=== PATIENT | female | born 1980 | race Caucasian/White ===

== ENCOUNTER 2025-02-12 00:19 | Inpatient (IN) | payer OTHER ==
--- NOTE | 2025-02-12 01:12 | ED ---
Abdominal Pain HPI - General Source: patient, RN notes reviewed Mode of arrival: ambulatory Limitations: no limitations - History of Present Illness MD Complaint: abdominal pain <Fatoumata Kiran - Last Filed: 02/12/25 20:39> <Marjorie Nash - Last Filed: 02/15/25 15:57> - General Chief Complaint: Abdominal Pain Stated Complaint: abd pain - History of Present Illness Initial Comments: Patient is a 44-year-old female with no known past medical history presenting for sudden onset abdominal pain. She states that around 7 PM her pain started mostly in her rib area but also has some right lower quadrant pain. She also reports increased flatus. She did have 1 episode of nonbloody nonbilious emesis earlier. She describes the pain as 89/10, twisting/cramping sensation, without radiation. History of tubal ligation 14 years ago. She denies aggravating factors or alleviating factors. She has tried NSAIDs, heating packs, positional changes without improvement. She denies fever/chills, chest pain, dyspnea, dysuria/hematuria, melena/hematochezia. (Fatoumata Kiran) - Related Data Previous Rx's Medication Instructions Recorded Amoxic-Pot Clav 500-125 mg 1 tab PO Q12HR #10 tab 02/14/25 [Augmentin 500-125 mg] Docusate [Colace] 100 mg PO BID #30 capsule 02/14/25 HYDROcodone/APAP 5-325MG [[place] 1 tab PO Q6HR PRN 3 Days #12 tab 02/14/25 5-325] Allergies Allergy/AdvReac Type Severity Reaction Status Date / Time No Known Allergies Allergy Verified 02/12/25 09:26 Review of Systems ROS Other: All systems not noted in ROS Statement are negative. Constitutional: Denies: fever, chills Respiratory: Denies: dyspnea Gastrointestinal: Reports: abdominal pain, nausea, vomiting (1 episode of nonbloody nonbilious emesis). Denies: diarrhea, constipation, melena, hematochezia Genitourinary: Denies: urgency, dysuria, frequency, hematuria <Fatoumata Kiran - Last Filed: 02/12/25 20:39> ROS Other: All systems not noted in ROS Statement are negative. <Marjorie Nash - Last Filed: 02/15/25 15:57> ROS Statement: Those systems with pertinent positive or pertinent negative responses have been documented in the HPI. Past Medical History Past Medical History: No Reported History History of Any Multi-Drug Resistant Organisms: None Reported Past Surgical History: No Surgical Hx Reported Past Psychological History: No Psychological Hx Reported Smoking Status: Never smoker Past Alcohol Use History: None Reported Past Drug Use History: None Reported <Fatoumata Kiran - Last Filed: 02/12/25 20:39> General Exam Limitations: no limitations General appearance: alert, in no apparent distress Head exam: Present: atraumatic Eye exam: Present: normal appearance Respiratory exam: Present: normal lung sounds bilaterally. Absent: respiratory distress, wheezes, rales, rhonchi, stridor, chest wall tenderness, accessory muscle use Cardiovascular Exam: Present: regular rate, normal rhythm, normal heart sounds. Absent: systolic murmur, diastolic murmur GI/Abdominal exam: Present: soft, tenderness (Mild RLQ), normal bowel sounds. Absent: distended, guarding, rebound, rigid Neurological exam: Present: alert, oriented X3 Psychiatric exam: Present: normal affect, normal mood <Fatoumata Kiran - Last Filed: 02/12/25 20:39> Course Vital Signs 02/12/25 02/12/25 02/12/25 00:32 04:59 06:28 Temperature 98 F 98.2 F 98.7 F Pulse Rate 70 71 70 Respiratory 18 18 18 Rate Blood Pressure 171/83 133/80 150/88 O2 Sat by Pulse 100 97 97 Oximetry 02/12/25 02/12/25 07:46 12:33 Temperature Pulse Rate 66 79 Respiratory 18 16 Rate Blood Pressure 157/88 157/99 O2 Sat by Pulse 98 100 Oximetry Medical Decision Making - Lab Data Result diagrams: 02/12/25 02:48 02/12/25 02:48 <Fatoumata Kiran - Last Filed: 02/12/25 20:39> - Lab Data Result diagrams: 02/14/25 08:54 02/14/25 08:40 <Marjorie Nash - Last Filed: 02/15/25 15:57> - Medical Decision Making Was pt. sent in by a medical professional or institution (, PA, WEBSPHERE COMMERCE DEVELOPER, urgent care, hospital, or senior living...) When possible be specific @ -No Did you speak to anyone other than the patient for history (EMS, parent, family, police, friend...)? What history was obtained from this source @ -No Did you review nursing and triage notes (agree or disagree)? Why? @ -I reviewed and agree with nursing and triage notes Were old charts reviewed (outside hosp., previous admission, EMS record, old EKG, old radiological studies, urgent care reports/EKG's, senior living records)? Report findings @ -No old charts were reviewed Differential Diagnosis? @ -Differential Abdominal Pain Women: Appendicitis, Cholecystitis, diverticulosis, ischemic bowel, pancreatitis, hepatitis, UTI, gastroenteritis, AAA, incarcerated hernia, bowel obstruction, constipation, inflammatory bowel, hepatitis, peptic ulcer disease, splenic infarction, perforated viscus, vulvitis, ovarian torsion, PID, kidney stone, placenta abruption, this is not meant to be an all-inclusive list EKG interpreted by me (3pts min.). @ -As above X-rays interpreted by me (1pt min.). @ -None done CT interpreted by me (1pt min.). @ -No obstruction or masses identified U/S interpreted by me (1pt. min.). @ -None done What testing was considered but not performed or refused? (CT, X-rays, U/S, labs)? Why? @ -None What meds were considered but not given or refused? Why? @ -None Did you discuss the management of the patient with other professionals (professionals i.e. , PA, WEBSPHERE COMMERCE DEVELOPER, lab, RT, psych nurse, social service manager, air traffic systems technician, teacher, founder chairman and chief creative officer, block and case maker)? Give summary @ -No Was smoking cessation discussed for >3mins.? @ -No Was critical care preformed (if so, how long)? @ -No Were there social determinants of health that impacted care today? How? (Homelessness, low income, unemployed, alcoholism, drug addiction, transportation, low edu. Level, literacy, decrease access to med. care, senior living, rehab)? @ -No Was there de-escalation of care discussed even if they declined (Discuss DNR or withdrawal of care, Hospice)? DNR status @ -No What co-morbidities impacted this encounter? (DM, HTN, Smoking, COPD, CAD, Cancer, CVA, ARF, Chemo, Hep., AIDS, mental health diagnosis, sleep apnea, morbid obesity)? @ -None Was patient admitted / discharged? Hospital course, mention meds given and route, prescriptions, significant lab abnormalities, going to OR and other perti nelisa info. @ -Patient is a 44-year-old female with no known past medical history presenting for 6 hours of sudden onset abdominal pain. She reports that as diffuse, 89/10, nonradiating, unchanging. A CBC, CMP, lipase, beta-hCG, urinalysis were obtained. Patient was given Pepcid, Carafate, Maalox, viscous lidocaine, Zofran, and morphine. CT scan revealed appendicitis without perforation or abs cess, bilateral adnexal varices, mild left hydronephrosis without hydroureter. Surgery was consulted and they accepted the patient. Undiagnosed new problem with uncertain prognosis? @ -No Drug Therapy requiring intensive monitoring for toxicity (Heparin, Nitro, Insulin, Cardizem)? @ -No Were any procedures done? @ -No Diagnosis/symptom? @ -Appendicitis Acute, or Chronic, or Acute on Chronic? @ -Acute Uncomplicated (without systemic symptoms) or Complicated (systemic symptoms)? @ -Uncomplicated Side effects of treatment? @ -No Exacerbation, Progression, or Severe Exacerbation? @ -No Poses a threat to life or bodily function? How? (Chest pain, [place], [place], pneumonia, PE, COPD, DKA, ARF, appy, cholecystitis, CVA, Diverticulitis, Homicidal, Suicidal, threat to staff... and all critical care pts) @ -No (Fatoumata Kiran) I personally saw the patient and performed the critical portion of the service. I discussed the patient care with the physician. I directed management, care planning and final disposition of the patient. This includes, but not limited to, review of all lab work, radiological studies, EKG's, consultations, vital signs, and nursing notes. CT interpreted by me ( 1pt min.) @Personally reviewed CT abdomen pelvis, I do not see any evidence of per foration or bowel obstruction, radiologist read is significant for appendicitis I agree with radiologist interpretation Critical care time of [0] minutes excluding separately billable procedures was spent in conjunction with critical care activities provided by the Resident and Attending simultaneously. I was present during [no procedures] for all critical portions of the procedure and as immediately available to furnish service during the entire procedure. (Marjorie Nash) - Lab Data Lab Results 02/12/25 02/12/25 02/12/25 Range/Units 02:48 02:48 02:48 WBC 14.37 H (4.50-10.00) 10*3/uL RBC 4.29 (4.10-5.20) 10*6/uL Hgb 13.7 (12.0-15.0) g/dL Hct 38.9 (37.2-46.3) % MCV 90.7 (80.0-97.0) fL MCH 31.9 (27.0-32.0) pg MCHC 35.2 (32.0-37.0) g/dL Plt Count 315 (140-440) 10*3/uL MPV 9.7 (9.5-12.2) fL Immature Gran % (Auto) 0.3 % Neutrophils % 87.0 % Lymphocytes % 8.6 % Monocytes % 3.7 % Eosinophils % 0.1 % Basophils % 0.3 % Immature Gran # 0.05 H (0.00-0.04) 10*3/uL Neutrophils # 12.50 H (1.80-7.70) 10*3/uL Lymphocytes # 1.24 (0.90-5.00) 10*3/uL Monocytes # 0.53 (0.20-1.00) 10*3/uL Eosinophils # 0.01 L (0.04-0.35) 10*3/uL Basophils # 0.04 (0.00-0.10) 10*3/uL Sodium 135 L (137-145) mmol/L Potassium 4.2 (3.5-5.1) mmol/L Chloride 101 (98-107) mmol/L Carbon Dioxide 23 (22-30) mmol/L Anion Gap 11 mmol/L BUN 13 (7-17) mg/dL Creatinine 0.61 (0.52-1.04) mg/dL Est GFR (CKD-EPI)AfAm >90 (>60 ml/min/1.73 sqM) Est GFR (CKD-EPI)NonAf >90 (>60 ml/min/1.73 sqM) Glucose 155 H (74-99) mg/dL Calcium 10.0 (8.4-10.2) mg/dL Total Bilirubin 0.6 (0.2-1.3) mg/dL AST 27 (14-36) U/L ALT 30 (4-34) U/L Alkaline Phosphatase 56 (38-126) U/L Total Protein 7.4 (6.3-8.2) g/dL Albumin 4.4 (3.5-5.0) g/dL Lipase 89 (23-300) U/L HCG, Qual Not Detected Urine Color Yellow Urine Appearance Clear (Clear) Urine pH 5.0 (5.0-8.0) Ur Specific [place] 1.027 (1.001-1.035) Urine Protein Negative (Negative) Urine Glucose (UA) 1+ H (Negative) Urine Ketones 1+ H (Negative) Urine Blood Trace H (Negative) Urine Nitrite Negative (Negative) Urine Bilirubin Negative (Negative) Urine Urobilinogen <2.0 (<2.0) mg/dL Ur Leukocyte Esterase Negative (Negative) Urine RBC 1 (0-5) /hpf Urine WBC 5 (0-5) /hpf Ur Squamous Epith Cells 3 (0-4) /hpf Urine Bacteria Rare H (None) /hpf Urine Mucus Few H (None) /hpf Disposition Time of Disposition: 08:38 <Fatoumata Kiran - Last Filed: 02/12/25 20:39> <Marjorie Nash - Last Filed: 02/15/25 15:57> Clinical Impression: Acute appendicitis Disposition: ADMITTED IP TO THIS HOSP Condition: Stable
[2025-02-12] MEDS: SUCRALFATE 1 GM TAB PO STA (02:53)
[2025-02-12] MEDS: MAG HYDROX/AL HYDROX/SIMETH 30 ML CUP PO PRN (02:54)
[2025-02-12] MEDS: MORPHINE SULFATE 4 MG/ML SYRINGE IVP STA ×2 (02:54→05:27)
[2025-02-12] MEDS: FAMOTIDINE 20 MG TAB PO STA (02:54)
[2025-02-12] MEDS: ONDANSETRON ODT 4 MG TAB PO STA (02:54)
[2025-02-12] MEDS: LIDOCAINE VISCOUS 2% 15 ML CUP PO ONE (03:02)
[2025-02-12 03:13] LABS: Basophils # (A) 0.04 10*3/uL (0.00-0.10); Basophils % (A) 0.3 %; Eosinophils # (A) 0.01 10*3/uL (0.04-0.35); Eosinophils % (A) 0.1 %; HCT 38.9 % (37.2-46.3); HGB 13.7 g/dL (12.0-15.0); Lymphocytes # (A) 1.24 10*3/uL (0.90-5.00); Lymphocytes % (A) 8.6 %; MCH 31.9 pg (27.0-32.0); MCHC 35.2 g/dL (32.0-37.0); MCV 90.7 fL (80.0-97.0); Mean Platelet Volume 9.7 fL (9.5-12.2); Monocytes # (A) 0.53 10*3/uL (0.20-1.00); Monocytes % (A) 3.7 %; Platelet Count 315 10*3/uL (140-440); RBC 4.29 10*6/uL (4.10-5.20); RDW 14.1 % (11.5-14.5); WBC 14.37 10*3/uL (4.50-10.00)
[2025-02-12 03:26] LABS: HCG,Qualitative Serum Not Detected
[2025-02-12 03:46] LABS: ALT 30 U/L (4-34); AST 27 U/L (14-36); African American GFR (CKD) >90 (>60 ml/min/1.73 sqM); Albumin 4.4 g/dL (3.5-5.0); Alkaline Phosphatase 56 U/L (38-126); Anion Gap 11 mmol/L; Blood Urea Nitrogen 13 mg/dL (7-17); Carbon Dioxide 23 mmol/L (22-30); Chloride 101 mmol/L (98-107); Glucose 155 mg/dL (74-99); Lipase 89 U/L (23-300); Non-African American GFR(CKD) >90 (>60 ml/min/1.73 sqM); Potassium 4.2 mmol/L (3.5-5.1); Sodium 135 mmol/L (137-145); Total Bilirubin 0.6 mg/dL (0.2-1.3); Total Protein 7.4 g/dL (6.3-8.2)
[2025-02-12 03:50] LABS: Appearance,Urine Clear (Clear); Bacteria,Urine Rare /hpf; Bilirubin,Urine Negative (Negative); Blood,Urine Trace (Negative); Color,Urine Yellow; Glucose,Urine (UA) 1+ (Negative); Ketones,Urine 1+ (Negative); Leukocyte Esterase,Urine Negative (Negative); Mucus,Urine Few /hpf; Nitrite,Urine Negative (Negative); Protein,Urine Negative (Negative); RBC,Urine 1 /hpf (0-5); Specific Gravity,Urine 1.027 (1.001-1.035); Squamous Epithelial Cell,Urine 3 /hpf (0-4); Urobilinogen,Urine <2.0 mg/dL (<2.0); WBC,Urine 5 /hpf (0-5)
--- NOTE | 2025-02-12 06:17 | CT ---
EXAM: CT Abdomen and Pelvis With Intravenous Contrast CLINICAL HISTORY: Patient reports upper abdominal pain and nausea/vomiting. Pt also reports gas/burping. Patient states the pain started at 7:00 pm 02-11-2025. Pts states last BM "couple of hours ago". Pt is A/Ox4. ABCs are intact. No signs of acute distress noted. TECHNIQUE: Axial computed tomography images of the abdomen and pelvis with intravenous contrast. Coronal and sagittal reconstructions are performed. CTDI is 20.1 mGy and DLP is 976.8 mGy-cm. This CT exam was performed using one or more of the following dose reduction techniques: automated exposure control, adjustment of the mA and/or kV according to patient size, and/or use of iterative reconstruction technique. 729 images COMPARISON: No relevant prior studies available. FINDINGS: Lung bases: Unremarkable. No mass. No consolidation. ABDOMEN: Liver: Unremarkable. No mass. Gallbladder and bile ducts: No acute findings. Pancreas: Unremarkable. No mass. No ductal dilation. Spleen: Unremarkable. No splenomegaly. Adrenals: Unremarkable. No mass. Kidneys and ureters: Mild left hydronephrosis without hydroureter. No stones identified in the collecting system. Stomach and bowel: Unremarkable. No obstruction. No mucosal thickening. PELVIS: Appendix: The appendix is dilated to a maximal diameter of 16 mm with circumferential wall thickening ras by moderate amount of mesenteric inflammation, containing 6 mm appendicolith, indicating appendicitis. Bladder: Unremarkable. No mass. Reproductive: No acute findings. ABDOMEN and PELVIS: Intraperitoneal space: Unremarkable. No free air. No significant fluid collection. Bones/joints: Mild thoracolumbar scoliosis convexed to the right. Soft tissues: Unremarkable. Vasculature: Bilateral adnexal varices, slightly worse on the left. 10 mm left ovarian vein dilatation. Lymph nodes: Unremarkable. No enlarged lymph nodes. IMPRESSION: 1. appendicitis. No perforation or abscess. 2. Bilateral adnexal varices, slightly worse on the left. 10 mm left ovarian vein dilatation. These findings may suggest pelvic congestion syndrome in the appropriate clinical setting. 3. Mild left hydronephrosis without hydroureter. No stone is identified in the collecting system. <MYCVCSECTION> Communications: 02/12/25 06:32 Verify Receipt Verified receipt with [facility]. Given to Dr. Nash on 02/12 06:32 (-04:00)
[2025-02-12] MEDS: ONDANSETRON 4 MG/2 ML VIAL IVP STA (08:06)
[2025-02-12] MEDS: HYDROmorphone 1 MG/ML 1 ML SYRINGE IVP STA (08:09)
[2025-02-12] MEDS: cefTRIAXone IN SWFI 1,000 MG/10 ML SYRINGE IVP STA (08:11)
[2025-02-12] MEDS ORDERED: NALOXONE 0.4 MG/ML 1 ML VIAL IV PRN (08:15)
[2025-02-12] MEDS: SODIUM CHLORIDE 0.9% 1,000 ML IV SCH (08:27)
[2025-02-12] MEDS: metroNIDAZOLE-NS PMX 500 MG in SALINE 1 100ML.BAG IVPB STA (08:29)
[2025-02-12] MEDS: ACETAMINOPHEN IV (For NPO) 1,000 MG in EMPTY BAG 1 BAG IVPB STA (09:32)
--- NOTE | 2025-02-12 11:44 | P.GSHP ---
History of Present Illness H&P Date: 02/12/25 CHIEF COMPLAINT: Abdominal pain HISTORY OF PRESENT ILLNESS: This is a 44-year-old female who presented to the hospital with complaints of pain across her rib cage that moved down into the right lower quadrant around 7:00 last night. Patient reports her appetite had been decreased. She did have 1 episode of emesis. She reports regular bowel movements. Denies any fever chills or sweats. Pain continued to worsen and therefore she came into the ER for further evaluation CT scan abdomen and pelvis was completed that showed evidence of appendicitis. Past surgical history includes tubal ligation. Patient denies any cardiac history. PAST MEDICAL HISTORY: See below PAST SURGICAL HISTORY: See below MEDICATIONS: See below ALLERGIES: See below SOCIAL HISTORY: No illicit drug use. REVIEW OF SYSTEMS: CONSTITUTIONAL: Denies fever or chills. HEENT: Denies blurred vision, vision changes, or eye pain. Denies hemoptysis CARDIOVASCULAR: Denies chest pain or pressure. RESPIRATORY: No shortness of breath. GASTROINTESTINAL: See HPI for pertinent findings HEMATOLOGIC: Denies bleeding disorders. GENITOURINARY: Denies any blood in urine or increased urinary frequency. SKIN: Denies pruitis. Denies rash. PHYSICAL EXAM: VITAL SIGNS: Reviewed GENERAL: Well-developed in no acute distress. HEENT: No sclera icterus. Extraocular movements grossly intact. Moist buccal mucosa. Head is atraumatic, normocephalic. No nasal drainage. ABDOMEN: Soft. Nondistended. Tenderness with palpation to right lower quadrant. NEUROLOGIC: Alert and oriented. Cranial nerves II through XII grossly intact. LABORATORY DATA: WBC 14.37 Hgb 13.7 platelets 315 Sodium is 135 potassium 4.2 creatinine 0.61 LFTs normal IMAGING: CT scan abdomen pelvis reports appendicitis. No perforation or abscess. Bilateral adnexal varices slightly worse on the left. 10 mm left ovarian vein dilatation. Findings suggest pelvic congestion syndrome. Mild left hydronephrosis without hydroureter. ASSESSMENT: 1. Acute appendicitis PLAN: - Patient scheduled for Robotic appendectomy today with Dr. Gonzalez - Keep n.p.o. - Continue antibiotics -Continue IV fluids -Continue pain management Physician Audit Senior Associate note has been reviewed by physician. Signing provider agrees with the documented findings, assessment, and plan of care. Attestation Patient seen and examined at bedside. Complains of abdominal pain that began evening before presentation. On workup, confirmed to have appendicitis with appendicolith. Patient started on IV antibiotics. Keep NPO. Plan for robotic appendectomy. Risks, benefits and alternatives discussed with patient. Further recommendations after procedure. Vidhi Gonzalez DO Past Medical History Past Medical History: No Reported History History of Any Multi-Drug Resistant Organisms: None Reported Past Surgical History: No Surgical Hx Reported Past Psychological History: No Psychological Hx Reported Smoking Status: Never smoker Past Alcohol Use History: None Reported Past Drug Use History: None Reported Medications and Allergies Home Medications Medication Instructions Recorded Confirmed Type No Known Home Medications 02/12/25 02/12/25 History Allergies Allergy/AdvReac Type Severity Reaction Status Date / Time No Known Allergies Allergy Verified 02/12/25 09:26 Surgical - Exam Osteopathic Statement: *. No significant issues noted on an osteopathic structural exam other than those noted in the History and Physical/Consult. Vital Signs Temp Pulse Resp BP Pulse Ox 98 F 70 18 171/83 100 02/12/25 00:32 02/12/25 00:32 02/12/25 00:32 02/12/25 00:32 02/12/25 00:32 Results - Labs 02/12/25 02:48 02/12/25 02:48 Abnormal Lab Results - Last 24 Hours (Table) 02/12/25 02/12/25 02/12/25 Range/Units 02:48 02:48 02:48 WBC 14.37 H (4.50-10.00) 10*3/uL Immature Gran # 0.05 H (0.00-0.04) 10*3/uL Neutrophils # 12.50 H (1.80-7.70) 10*3/uL Eosinophils # 0.01 L (0.04-0.35) 10*3/uL Sodium 135 L (137-145) mmol/L Glucose 155 H (74-99) mg/dL Urine Glucose (UA) 1+ H (Negative) Urine Ketones 1+ H (Negative) Urine Blood Trace H (Negative) Urine Bacteria Rare H (None) /hpf Urine Mucus Few H (None) /hpf Diabetes panel 02/12/25 Range/Units 02:48 Sodium 135 L (137-145) mmol/L Potassium 4.2 (3.5-5.1) mmol/L Chloride 101 (98-107) mmol/L Carbon Dioxide 23 (22-30) mmol/L BUN 13 (7-17) mg/dL Creatinine 0.61 (0.52-1.04) mg/dL Glucose 155 H (74-99) mg/dL Calcium 10.0 (8.4-10.2) mg/dL AST 27 (14-36) U/L ALT 30 (4-34) U/L Alkaline Phosphatase 56 (38-126) U/L Total Protein 7.4 (6.3-8.2) g/dL Albumin 4.4 (3.5-5.0) g/dL Calcium panel 02/12/25 Range/Units 02:48 Calcium 10.0 (8.4-10.2) mg/dL Albumin 4.4 (3.5-5.0) g/dL Pituitary panel 02/12/25 Range/Units 02:48 Sodium 135 L (137-145) mmol/L Potassium 4.2 (3.5-5.1) mmol/L Chloride 101 (98-107) mmol/L Carbon Dioxide 23 (22-30) mmol/L BUN 13 (7-17) mg/dL Creatinine 0.61 (0.52-1.04) mg/dL Glucose 155 H (74-99) mg/dL Calcium 10.0 (8.4-10.2) mg/dL Adrenal panel 02/12/25 Range/Units 02:48 Sodium 135 L (137-145) mmol/L Potassium 4.2 (3.5-5.1) mmol/L Chloride 101 (98-107) mmol/L Carbon Dioxide 23 (22-30) mmol/L BUN 13 (7-17) mg/dL Creatinine 0.61 (0.52-1.04) mg/dL Glucose 155 H (74-99) mg/dL Calcium 10.0 (8.4-10.2) mg/dL Total Bilirubin 0.6 (0.2-1.3) mg/dL AST 27 (14-36) U/L ALT 30 (4-34) U/L Alkaline Phosphatase 56 (38-126) U/L Total Protein 7.4 (6.3-8.2) g/dL Albumin 4.4 (3.5-5.0) g/dL
[2025-02-12] MEDS: HYDROmorphone 1 MG/ML 1 ML SYRINGE IVP PRN (12:34)
[2025-02-12] MEDS: IV FLUID CONTINUATION 1,000 ML IV ONE (13:38)
[2025-02-12] MEDS: ONDANSETRON 4 MG/2 ML VIAL IVP PRN (13:55)
[2025-02-12] MEDS: DEXAMETHASONE SOD PHOSPHATE 4 MG/ML 1 ML VIAL IVP STA (13:56)
[2025-02-12] MEDS ORDERED: SUCCINYLCHOLINE CHLORIDE 200 MG/10 ML VIAL IV ONE (16:08)
[2025-02-12] MEDS ORDERED: KETOROLAC 15 MG/ML 1 ML VIAL ONE (16:08)
[2025-02-12] MEDS ORDERED: HEPARIN SODIUM,PORCINE 5,000 UNIT/ML 1 ML VIAL ONE (16:08)
[2025-02-12] MEDS ORDERED: GLYCOPYRROLATE 0.2 MG/ML 2 ML VIAL ONE (16:08)
[2025-02-12] MEDS ORDERED: NEOSTIGMINE 1 MG/ML 10 ML VIAL ONE (16:08)
[2025-02-12] MEDS ORDERED: HYDROmorphone (PF) 1 MG/ML ONE (16:08)
[2025-02-12] MEDS ORDERED: KETAMINE HCL IN 0.9 % NACL 50 MG/5 ML SYRINGE ONE (16:08)
[2025-02-12] MEDS ORDERED: fentaNYL (PF) 50 MCG/ML 2 ML AMP ONE (16:08)
[2025-02-12] MEDS ORDERED: ROCURONIUM 10 MG/ML (5 ML VIAL) IV ONE (16:08)
[2025-02-12] MEDS ORDERED: LIDOCAINE 1% INJ 10MG/ML (20 ML MDV) ONE (16:08)
[2025-02-12] MEDS ORDERED: MIDAZOLAM 2 MG/2 ML VIAL ONE (16:08)
[2025-02-12] MEDS ORDERED: PROPOFOL 10 MG/ML 20 ML VIAL IV ONE (16:08)
[2025-02-12] MEDS: LIDOCAINE 1%-EPI 1:100,000 20 ML VIAL SQ ONE ×2 (16:40)
[2025-02-12] MEDS: LACTATED RINGERS 1,000 ML IV ONE (17:10)
[2025-02-12] MEDS: HYDROmorphone 0.5 MG/0.5 ML SYRINGE IVP STA (18:46)
[2025-02-12] MEDS: metroNIDAZOLE-NS PMX 500 MG in SALINE 1 100ML.BAG IVPB SCH (20:18)
[2025-02-13] MEDS: ACETAMINOPHEN TAB 500 MG TAB PO STA (06:21)
[2025-02-13 08:55] LABS: Basophils # (A) 0.02 10*3/uL (0.00-0.10); Basophils % (A) 0.2 %; Eosinophils # (A) 0.03 10*3/uL (0.04-0.35); Eosinophils % (A) 0.3 %; HCT 34.8 % (37.2-46.3); HGB 11.3 g/dL (12.0-15.0); Lymphocytes # (A) 1.92 10*3/uL (0.90-5.00); Lymphocytes % (A) 18.4 %; MCHC 32.5 g/dL (32.0-37.0); MCV 95.6 fL (80.0-97.0); Mean Platelet Volume 10.1 fL (9.5-12.2); Monocytes # (A) 0.58 10*3/uL (0.20-1.00); Monocytes % (A) 5.6 %; Neutrophils # (A) 7.84 10*3/uL (1.80-7.70); Neutrophils % (A) 75.1 %; Platelet Count 264 10*3/uL (140-440); RBC 3.64 10*6/uL (4.10-5.20); RDW 14.5 % (11.5-14.5); WBC 10.43 10*3/uL (4.50-10.00)
[2025-02-13 09:11] LABS: African American GFR (CKD) >90 (>60 ml/min/1.73 sqM); Anion Gap 7 mmol/L; Blood Urea Nitrogen 6 mg/dL (7-17); Calcium 8.5 mg/dL (8.4-10.2); Carbon Dioxide 26 mmol/L (22-30); Chloride 104 mmol/L (98-107); Glucose 145 mg/dL (74-99); Non-African American GFR(CKD) >90 (>60 ml/min/1.73 sqM); Potassium 3.8 mmol/L (3.5-5.1); Sodium 137 mmol/L (137-145)
[2025-02-13] MEDS: HYDROcodone/APAP 5-325MG 1 EACH TAB PO PRN (12:52)
--- NOTE | 2025-02-13 13:02 | P.PN ---
Subjective Progress Note Date: 02/13/25 SURGICAL PROGRESS NOTE CHIEF COMPLAINT: Appendicitis HISTORY OF PRESENT ILLNESS: Postop day #1 status post robotic converted to open appendectomy and partial cecectomy. Pain is controlled. Patient denies any nausea or vomiting. Denies any bowel activity. Afebrile. WBC is down from 14.3-10.4 Hgb 13.7-11.3 platelets 264 PHYSICAL EXAM: VITAL SIGNS: Reviewed. GENERAL: Well-developed in no acute distress. HEENT: No sclera icterus. Extraocular movements grossly intact. Moist buccal mucosa. Head is atraumatic, normocephalic. ABDOMEN: Soft. Nondistended. Incisional dressing lower right quadrant of abdomen small area of saturation. Other incisions clean dry and intact. NEUROLOGIC: Alert and oriented. Cranial nerves II through XII grossly intact. ASSESSMENT: 1. Acute appendicitis PLAN: - Continue clear liquid diet - Add [place] for oral pain medication - Encourage patient to increase activity level - Tylenol added for headache - Continue antibiotics - Anticipate discharge possibly tomorrow - GI prophylaxis Pepcid and DVT prophylaxis subcu heparin Physician Heavy Equipment Sales Manager note has been reviewed by physician. Signing provider agrees with the documented findings, assessment, and plan of care. Attestation Patient seen and examined at bedside. Postoperative day #1 robotic converted to open appendectomy and partial cecectomy. Patient tolerated clear liquid diet and we will plan to advance to full liquid diet. Continue to increase activity. Pain medication was adjusted. Continue IV antibiotics. Likely discharge in 24 to 48 hours. Leukocytosis downward trending. Shilpin Gonzalez, DO Objective - Vital Signs Vital signs: Vital Signs Temp 98.1 F 02/13/25 08:00 Pulse 58 L 02/13/25 08:00 Resp 18 02/13/25 08:00 BP 139/80 02/13/25 08:00 Pulse Ox 100 02/13/25 08:00 FiO2 Intake & Output 02/12/25 02/13/25 02/13/25 18:59 06:59 18:59 Intake Total 1300 Output Total 30 Balance 1270 Weight 76.204 kg Intake: IV 1300 Output: Estimated Blood Loss 30 Other: Voiding Method Toilet Toilet # Voids 3 - Labs CBC & Chem 7: 02/13/25 08:29 02/13/25 08:29 Labs: Abnormal Lab Results - Last 24 Hours (Table) 02/13/25 02/13/25 Range/Units 08:29 08:29 WBC 10.43 H (4.50-10.00) 10*3/uL RBC 3.64 L (4.10-5.20) 10*6/uL Hgb 11.3 L (12.0-15.0) g/dL Hct 34.8 L (37.2-46.3) % Neutrophils # 7.84 H (1.80-7.70) 10*3/uL Eosinophils # 0.03 L (0.04-0.35) 10*3/uL BUN 6 L (7-17) mg/dL Glucose 145 H (74-99) mg/dL
--- NOTE | 2025-02-13 14:17 | P.OP ---
Date of Procedure: 02/12/25 Preoperative Diagnosis: Acute appendicitis Postoperative Diagnosis: Acute appendicitis Procedure(s) Performed: Robotic converted to open appendectomy, partial cecectomy Anesthesia: ASHISHA Surgeon: Vidhi Gonzalez Pathology: other (Appendix) Condition: stable Disposition: floor Indications for Procedure: 44-year-old female presented to the emergency department with complaint of abdominal pain, mainly in the right lower quadrant. On workup she is found to have acute appendicitis with appendicolith. Plan for robotic appendectomy. Risks, benefits and alternatives were provided to the patient. All questions answered prior to attending the operating suite. Operative Findings: Significantly inflamed appendix that was densely adhered to the cecum Description of Procedure: Patient was brought to the operative suite and placed in supine position on the operating table. Sedation provided by anesthesia and the patient underwent endotracheal intubation. The patient was then prepped and draped in regular sterile fashion. Supraumbilical incision was made and dissection was carried to the fascia. Fascia was incised and a 12 mm trocar was placed. Pneumoperitoneum was achieved. Additional 8 mm trocar was placed in the suprapubic region and in the left lower quadrant. Robot was docked after patient was placed in appropriate position. The cecum was then closely examined and was noted to have significant inflammatory changes. Dissection was carried to try to isolate the appendix, however the appendix was noted to be densely adhered to the cecum. No clear plane was delineated and it was determined it was unsafe to continue in the minimally invasive approach. Robot was undocked and incision was made in the right lower quadrant and dissection was carried towards the fascia. The fascia was incised and the muscle was split and the peritoneum was entered. The cecum was grasped with an Allis clamp and brought to the surface and the appendix was noted to be densely adhered. Careful and meticulous dissection was performed to free the appendix from its dense adhesion. A window was created between the appendix and the mesoappendix and the mesoappendix was ligated using cautery. The base of the appendix was noted to have significant indurated tissue and this extended into the cecum. Decision was made to make a partial sick ectomy. Stapler device was then fired across a portion of the cecum including the appendix and the specimen was removed. Hemostasis was noted to be maintained. Copious amounts irrigation was placed in the abdomen and suctioned. Wound was then closed in layers with 3-0 Vicryl suture in the peritoneal layer. The fascial layer was closed with 0 Vicryl suture. Wound was then closed in layers with 3-0 Vicryl and 4-0 Vicryl subcuticular suture. Midline 12 mm trocar site fascia was closed with 0 Vicryl suture. All skin incisions were closed with 4-0 Monocryl suture. Sterile dressing applied. The patient was awakened in the operating suite and taken to postanesthesia care unit in stable cond ition.
[2025-02-13] MEDS: ACETAMINOPHEN TAB 325 MG TAB PO PRN (20:04)
[2025-02-13] MEDS: HEPARIN SODIUM,PORCINE 5,000 UNIT/ML 1 ML VIAL SQ SCH (20:05)
[2025-02-14 09:17] LABS: ALT 29 U/L (4-34); AST 25 U/L (14-36); African American GFR (CKD) >90 (>60 ml/min/1.73 sqM); Albumin 3.2 g/dL (3.5-5.0); Albumin/Globulin Ratio 1.3; Alkaline Phosphatase 40 U/L (38-126); Anion Gap 5 mmol/L; Blood Urea Nitrogen 4 mg/dL (7-17); Calcium 8.6 mg/dL (8.4-10.2); Carbon Dioxide 27 mmol/L (22-30); Chloride 106 mmol/L (98-107); Globulin 2.5 g/dL; Glucose 157 mg/dL (74-99); Non-African American GFR(CKD) >90 (>60 ml/min/1.73 sqM); Sodium 138 mmol/L (137-145); Total Bilirubin 0.5 mg/dL (0.2-1.3); Total Protein 5.7 g/dL (6.3-8.2)
[2025-02-14 09:31] LABS: Basophils # (A) 0.04 10*3/uL (0.00-0.10); Basophils % (A) 0.6 %; Eosinophils # (A) 0.08 10*3/uL (0.04-0.35); Eosinophils % (A) 1.3 %; HCT 32.7 % (37.2-46.3); HGB 10.6 g/dL (12.0-15.0); Lymphocytes # (A) 1.63 10*3/uL (0.90-5.00); Lymphocytes % (A) 25.6 %; MCH 31.6 pg (27.0-32.0); MCHC 32.4 g/dL (32.0-37.0); MCV 97.6 fL (80.0-97.0); Mean Platelet Volume 10.5 fL (9.5-12.2); Monocytes % (A) 7.8 %; Neutrophils # (A) 4.09 10*3/uL (1.80-7.70); Neutrophils % (A) 64.2 %; Platelet Count 240 10*3/uL (140-440); RBC 3.35 10*6/uL (4.10-5.20); RDW 14.8 % (11.5-14.5); WBC 6.37 10*3/uL (4.50-10.00)
[2025-02-14 13:29] VITALS: BP 127/76; PULSE 69; RESP 15; TEMP 97.8
--- NOTE | 2025-02-14 14:38 | P.DS ---
Providers Date of admission: 02/12/25 08:17 Expected date of discharge: 02/14/25 Attending physician: Vidhi Gonzalez DO Primary care physician: Arden Haro [facility] Course: Discharge diagnosis 1. Acute appendicitis Hospital course This is a 44-year-old female who presented to the hospital with complaints of pain across her rib cage that moved down into the right lower quadrant. CT scan abdomen and pelvis was completed that showed evidence of appendicitis. Patient is status post Robotic converted to open appendectomy with partial cecectomy. Patient tolerated surgery well. Her pain is controlled. She is tolerating diet. She is having flatus. She has been up and ambulating. She denies any difficulty urinating. She is afebrile. She is stable for discharge. Please refer to chart for any further details. Physician Supervisor Laundry note has been reviewed by physician. Signing provider agrees with the documented findings, assessment, and plan of care. Attestation Pt POD #2, robo converted to open appendectomy and partial cecectomy. She has improved through her admission. Pain controlled. Tolerating diet. Leukocytosis resolved. Surgically stable fro DC with outpt follow up Vidhi Gonzalez DO Patient Condition at Discharge: Stable Plan - Discharge Summary Discharge Rx Participant: Yes New Discharge Prescriptions: New HYDROcodone/APAP 5-325MG [Suches 5-325] 1 tab PO Q6HR PRN 3 Days #12 tab PRN Reason: Pain Docusate [Colace] 100 mg PO BID #30 capsule Amoxic-Pot Clav 500-125 mg [Augmentin 500-125 mg] 1 tab PO Q12HR #10 tab Discharge Medication List Amoxic-Pot Clav 500-125 mg [Augmentin 500-125 mg] 1 tab PO Q12HR #10 tab 02/14/25 [Rx] Docusate [Colace] 100 mg PO BID #30 capsule 02/14/25 [Rx] HYDROcodone/APAP 5-325MG [Suches 5-325] 1 tab PO Q6HR PRN 3 Days #12 tab 02/14/25 [Rx] Follow up Appointment(s)/Referral(s): Casa Haro MD [Primary Care Provider] - 1-2 days (Office stated to call office for follow-up appointment if needed.) Vidhi Gonzalez DO [Doctor of Osteopathic Medicine] - 03/06/25 9:15 am (With Dr. Wilson) Activity/Diet/Wound Care/Special Instructions: No driving while taking Suches No lifting over 10 pounds You may shower. No soaking or tub baths for 2 weeks Very light activity until you are reevaluated at your follow up appointment with your surgeon Remove surgical dressing tomorrow on 02/15/25 Discharge Disposition: HOME SELF-CARE
== END 2025-02-14 16:20 | disposition home or self-care (01) | DRG 330 ==
LOC: EC 00:19 → 4SSUR 08:17 → 4FBP 17:20 → 4SSUR 17:56
PROVIDERS: ADMIT Surgery; ATTEND Surgery
PROC: 0WJG4ZZ Inspection of Peritoneal Cavity, Percutaneous Endoscopic Approach (ICD-10-PCS; principal; 2025-02-12 09:15)
PROC: 0DTJ0ZZ Resection of Appendix, Open Approach (ICD-10-PCS; principal; 2025-02-12 09:15)
PROC: 0DBH0ZZ Excision of Cecum, Open Approach (ICD-10-PCS; principal; 2025-02-12 09:15)
PROC: 8E0W0CZ Robotic Assisted Procedure of Trunk Region, Open Approach (ICD-10-PCS; principal; 2025-02-12 09:15)
DX: K35.80 Unspecified acute appendicitis (principal); N13.30 Unspecified hydronephrosis; I86.2 Pelvic varices; K38.1 Appendicular concretions; N94.89 Other specified conditions associated with female genital organs and menstrual cycle; Z98.51 Tubal ligation status; Z53.31 Laparoscopic surgical procedure converted to open procedure
CPT/HCPCS: 36415; 74177; 80048; 80053; 81001; 83690; 84703; 85025; 88307; 96365; 96375; 96376; 99285